=== PATIENT | male | born 1970 | race Caucasian/White ===

== ENCOUNTER → 2022-10-08 | Outpatient (CLI) | payer BC ==
--- NOTE | 2022-10-08 14:10 | XR ---
EXAMINATION TYPE: XR chest 2V DATE OF EXAM: 10/08/2022 COMPARISON: None HISTORY: 52-year-old male [id number], cough TECHNIQUE: Frontal and lateral views FINDINGS: The cardiomediastinal silhouette, aorta, and pulmonary vasculature are within normal limits. Lungs an d pleural spaces are clear. IMPRESSION: No acute cardiopulmonary process.
== END | disposition home or self-care (01) ==
LOC: RADXRYALE 10:07
PROVIDERS: ATTEND Physician Assistant
DX: R05.9 Cough, unspecified (principal)
CPT/HCPCS: 71046